=== PATIENT | female | born 1965 | race African-American/Black ===

== ENCOUNTER 2017-07-04 09:51 | Emergency (ER) | payer MEDICAID ==
[2017-07-04 09:59] VITALS: BP 160/89
[2017-07-04] MEDS ORDERED: ACETAMINOPHEN 500MG TABLET PO ONE (12:00)
[2017-07-04] MEDS ORDERED: IBUPROFEN 600MG TABLET PO ONE (12:00)
== END 2017-07-04 12:20 | disposition home or self-care (01) ==
LOC: ER 09:51
DX: M71.22 Synovial cyst of popliteal space [Baker], left knee (principal); M71.21 Synovial cyst of popliteal space [Baker], right knee; F17.200 Nicotine dependence, unspecified, uncomplicated
CPT/HCPCS: 81025; 99283

== ENCOUNTER 2022-10-23 03:26 | Emergency (ER) | payer MEDICAID, OTHER ==
[~2022-10-23] VITALS: Ht 167.6 cm; Wt 84.0 kg
[2022-10-23 03:34] VITALS: O2SAT 97
[2022-10-23 04:21] LABS: HEMATOCRIT. 40.9 % (36.0-48.0); HEMOGLOBIN. 13.9 g/dL (12.0-16.0); MEAN CORPUSCULAR VOLUME 97.4 fL (81.0-99.0); MEAN PLATELET VOLUME 8.8 fl (7.4-10.4); PLATELET 117 x1000/uL (130-400); RED CELL DISTRIBUTION WIDTH 13.5 % (11.6-14.6)
[2022-10-23 04:29] LABS: CHLORIDE 109 mEq/L (98-107)
[2022-10-23 04:47] LABS: PLATELET ESTIMATE SLIGHTLY DECREASED
[2022-10-23 05:29] LABS: CLARITY URINE CLEAR (CLEAR); COLOR URINE YELLOW (YELLOW); KETONES URINE NEGATIVE (NEGATIVE); LEUKOCYTE ESTERASE URINE NEGATIVE (NEGATIVE); NITRITE URINE NEGATIVE (NEGATIVE); OCCULT BLOOD URINE TRACE (NEGATIVE); PROTEIN URINE NEGATIVE (NEGATIVE); SPECIFIC GRAVITY URINE 1.007 (1.005-1.030); UROBILINOGEN URINE 0.2 E.U./dL (0.2-1.0)
[2022-10-23] MEDS ORDERED: AMLODIPINE 5MG TABLET PO ONE (06:00)
[2022-10-23] MEDS ORDERED: KETOROLAC 30MG/ML VIAL IM ONE (06:00)
[2022-10-23] MEDS ORDERED: ACETAMINOPHEN 325MG TABLET PO ONE (06:00)
[2022-10-23] MEDS ORDERED: ONDANSETRON 4MG ODT PO ONE (06:00)
[2022-10-23 06:20] VITALS: BP 192/90; PULSE 88; RESP 20; TEMP 98.4
[2022-10-23] MEDS ORDERED: CEPH250C2 MT (06:30)
== END 2022-10-23 06:48 | disposition home or self-care (01) ==
LOC: ER 06:05
DX: I10 Essential (primary) hypertension (principal); Z98.890 Other specified postprocedural states
CPT/HCPCS: 80053; 81003; 83690; 85025; 36415; 96372; 99284; Q0162; J1885; Z7610